=== PATIENT | female | born 1985 | race Caucasian/White ===

== ENCOUNTER → 2019-11-19 | Outpatient (CLI) | payer OTHER ==
--- NOTE | 2019-11-21 14:07 | PATH ---
[facility] [address] [place] [address] PATHOLOGY RPT PROCEDURE Name: ALYSSA JACKSON Room #: REG [facility] MLeonie.#: [id number] Admission: 11/19/19 Date of : 81 Discharge: Report #: [id number] Path Case #: [id number] [facility] Accession Number: [id number] . 01 Material submitted: . colon - BIOPSY OF ASCENDING COLON POLYP. Modifiers: ascending . 01 Clinical history: . Left sided abdominal pain, irregular BM, rectal bleeding, constipation . 02 Diagnosis: Polyp, ascending colon polyp, endoscopic biopsy: - Tubular adenoma. - Negative for high-grade dysplasia. (IUV:detention attendant; 11/21/2019) MBR 11/21/2019 1149 Local . 02 Electronically signed: . Cynthia Lara MD, Pathologist NPI- [id number] . 01 Gross description: . The specimen is received in formalin, labeled "Vickie Alyssa, BX of ascending colon polyp" and consists of a fragment of pink-ng tissue measuring 0.4 x 0.3 x 0.2 cm which is entirely submitted in A1. (SDY; 11/20/2019) SYU/SYU 11/20/2019 1140 Local . 02 Pathologist provided ICD-10: D12.2 . 02 CPT . 161510 Specimen Comment: A courtesy copy of this report has been sent to [phone] Specimen Comment: [id number] Specimen Comment: Report sent to / DR SCHULZ Performed at: [address], [place], [place] [id number] MD Ruben Chaudhari MD Phone: [phone] Performed at: [address] [id number] MD Cynthia Lara MD Phone: [phone]
== END | disposition home or self-care (01) ==
LOC: GI 07:55
DX: K92.1 Melena (principal); D12.2 Benign neoplasm of ascending colon; K64.8 Other hemorrhoids; F32.9 Major depressive disorder, single episode, unspecified; Z98.890 Other specified postprocedural states; Z79.899 Other long term (current) drug therapy; Z80.0 Family history of malignant neoplasm of digestive organs; Z88.0 Allergy status to penicillin
CPT/HCPCS: 62110; 62900